=== PATIENT | male | born 1965 | race Caucasian/White ===

== ENCOUNTER 2018-07-10 14:36 | Emergency (ER) | payer OTHER | END 2018-07-10 15:09 | disposition home or self-care (01) | LOC: SCSER 14:36 | DX: S81.852A Open bite, left lower leg, initial encounter (principal); S81.832A Puncture wound without foreign body, left lower leg, initial encounter; F41.9 Anxiety disorder, unspecified; F32.9 Major depressive disorder, single episode, unspecified; F17.210 Nicotine dependence, cigarettes, uncomplicated; W54.0XXA Bitten by dog, initial encounter; Z79.899 Other long term (current) drug therapy | CPT/HCPCS: 99283 ==

== ENCOUNTER 2020-10-26 11:43 | Outpatient (CLI) | payer BC, OTHER | END 2020-10-26 11:44 | disposition home or self-care (01) | LOC: SCSRAD 11:43 | PROVIDERS: ATTEND Social Worker Clinical | DX: M54.5 Low back pain (principal); M47.816 Spondylosis without myelopathy or radiculopathy, lumbar region | CPT/HCPCS: 72100 ==

== ENCOUNTER 2022-11-10 12:25 | Outpatient (CLI) | payer BC | END 2022-11-10 12:26 | disposition home or self-care (01) | LOC: SCSRAD 12:25 | PROVIDERS: ATTEND Nurse Practitioner Family | DX: M25.561 Pain in right knee (principal) ==